=== PATIENT | female | born 1955 | race Asian ===

== ENCOUNTER 2022-07-06 22:40 | Inpatient (IN) | payer BC, SELFPAY ==
--- NOTE | ~2022-07-06 | NM_ITS ---
Nuclear Medicine Procedure: Perfusion/Ventilation Lung Scan History: Pulmonary embolus, Elevated d-dimer Interpretation: Ventilation portion of the exam was not performed due to covid 19 precautions. 5.1 mCi. of Technetium-labeled microspheres were injected intravenously and multiple images obtained in 8 projections revealed normal perfusion to the lungs without any segmental or subsegmental defects . Impression: Normal perfusion lung scan. ............................................................... The following are reference parameters for VQ scan interpretation: 1. Normal or Near-Normal Lung Scan: This excludes clinically significant pulmonary embolism. Angiography is not necessary. 2. High Probability for Pulmonary Embolism: There is over 90% probability for acute pulmonary embolism. Angiography is not necessary for confirmation. 3. A. Intermediate (low end): Whereas unlikely to be PE based on V/Q scan alone, there is a 10-25% probability for pulmonary embolism (PE) based upon the level of clinical suspicion. B. Intermediate (high end): Depending upon the level of clinical suspicion, there is a 30-60% probability for pulmonary embolism. Reviewed, dictated and finalized at location [] ENGRAVER Impression: Normal perfusion lung scan. ............................................................... The following are reference parameters for VQ scan interpretation: 1. Normal or Near-Normal Lung Scan: This excludes clinically significant pulmonary embolism. Angiography is not necessary. 2. High Probability for Pulmonary Embolism: There is over 90% probability for acute pulmonary embolism. Angiography is not necessary for confirmation. 3. A. Intermediate (low end): Whereas unlikely to be PE based on V/Q scan alone, there is a 10-25% probability for pulmonary embolism (PE) based upon the level of clinical suspicion. B. Intermediate (high end): Depending upon the level of clinical suspicion, there is a 30-60% probability for pulmonary embolism.
--- NOTE | ~2022-07-06 | US_ITS ---
Duplex Sonography of the bilateral lower extremities: Indication: Low extremity swelling Sagittal and transverse B-mode images as well as color-flow imaging were performed on the right and l eft femoral and popliteal veins. B-mode examination was done without and with compression in the tra nsverse plane. There is good visualization of the bilateral common femoral, proximal profunda femora l, superficial femoral, greater saphenous, and popliteal veins. Normal flow was seen on color-flow im aging. Normal compressibility was demonstrated. Bilateral calf veins are also patent. Impression: No evidence for lower extremity DVT. Reviewed, dictated and finalized at location [] CTOR AIRPORT Impression: No evidence for lower extremity DVT.
--- NOTE | ~2022-07-06 | NM_ITS ---
EXAMINATION: NM mauri stress w perfusion DATE: 07/09/2022 13:31 INDICATION: Ischemic evaluation for reduced left ventricular ejection fraction TECHNIQUE: Rest images were obtained following intravenous administration of 8.5 mCi Tc99m tetrofosmi n (Myoview). The patient was infused intravenously with Lexiscan (Regadenoson). Then, 87.5 mCi Tc99m tetrofosmin (Myoview) was administered intravenously, and stress images were obtained. Data was recon structed into short axis and horizontal and vertical long axis SPECT images. Gated SPECT images were also obtained. COMPARISON: None. FINDINGS: Large fixed mild to moderate severity perfusion defect consistent with infarct involving th e mid anteroseptal, apical, mid and basilar anterior segments and the mid and basilar anterolateral s egments. Additional small mild to moderate severity fixed perfusion defect at the mid inferior segmen t. No reversible perfusion defects to suggest ischemia. There is normal left ventricular chamber size with diffuse hypokinesis resulting in moderately decreased left ventricular ejection fraction measur ing 23%. IMPRESSION: 1. Large mild to moderate severity nonreversible infarct involving the mid anteroseptal, the apical, mid and basilar anterior segments in the mid and basilar anterolateral segments. 2. Small mild/moderate severity nonreversible infarct involving the mid inferior segment. 2. Moderately decreased left ventricular ejection fraction measuring 23%. Reviewed, dictated and finalized at location A. RMATICS PHYSICIAN LIAISON IMPRESSION: 1. Large mild to moderate severity nonreversible infarct involving the mid ante roseptal, the apical, mid and basilar anterior segments in the mid and basilar anterolateral segments. 2. Small mild/moderate severity nonreversible infarct involving the mid inferio r segment. 2. Moderately decreased left ventricular ejection fraction measuring 23%.
--- NOTE | ~2022-07-06 | XR_ITS ---
EXAMINATION: XR chest 1V portable DATE: 07/06/2022 23:38 INDICATION: Shortness of breath. TECHNIQUE: A single frontal view of the chest was obtained. COMPARISON: None. FINDINGS: There are small pleural effusions. There is a diffuse interstitial pattern in the lungs. Th ere are airspace opacities at the lung bases. No pneumothorax. Cardiomegaly is noted. IMPRESSION: 1. Diffuse lung disease, likely pulmonary edema and basilar atelectasis versus pneumonia. 2. Small pleural effusions. 3. Cardiomegaly. Reviewed, dictated and finalized at location A. ERIOLOGY TECHNICIAN
[2022-07-06 22:34] VITALS: BP 161/114; PULSE 139; RESP 23; O2SAT 100
[2022-07-06 22:45] VITALS: PULSE 148; RESP 38; O2SAT 100
--- NOTE | 2022-07-06 23:09 | PC.NURSE ---
Upon arrival to the ED patient was experiencing SOB. Patient was placed on 15L NRB due to oxygen sat being in the 70's on room air. Dr Church gave verbal order for 80mg of lasix, a call to respiratory for bipap and 2 nitro tablets to be given. Those medications were given at 2242 by nurse Fletcher. Patient condition did not improve and verbal order was given for 6mg adenosine by Dr Church. Medication administered by physician at 2255. Patient did not improve after administration so verbal order for 12mg was given. 12mg of adenosine was administered by Dr Church at 2258. Patient currently on bipap and tolerating the mask at this time. Family states patient has history of cancer and has been undergoing chemo.
--- NOTE | 2022-07-06 23:39 | ECG_ITS ---
Measurements Intervals [place] Rate: 150 P: 179 TX: 95 QRS: 81 QRSD: 132 T: 52 QT: 326 QTc: 515 Interpretive Statements SINUS TACHYCARDIA WITH SHORT TX INTERVAL, POSSIBLE ATRIAL FLUTTER INTRAVENTRICULAR CONDUCTION DELAY [130+ ms QRS DURATION] NO PREVIOUS ECG AVAILABLE FOR COMPARISON Electronically Signed On 07-07-2022 16:19:43 SPINNING LATHE OPERATOR by Afua Bustos M.D.
--- NOTE | 2022-07-06 23:54 | ED.GENADULT ---
HPI - General Adult General Chief complaint: Shortness of Breath/Dyspnea Stated complaint: CP/SOB Time Seen by Provider: 07/06/22 23:19 History of Present Illness HPI narrative: Patient is English speaking and her son translated as the translating service could not find us a clinical science consultant. This is a 66-year-old female presenting ED with chief complaint of shortness of breath. Patient was sitting watching TV when she became acutely short of breath. She denies chest pain, fever, chills, Nausea vomiting abdominal pain or diarrhea. No sick contacts at home. Patient has had this happen in the past in [place] where she is from. she has been diagnosed with fluid on her lungs. She also has had fluid drained from her lungs multiple times. Patient has a history of B-cell lymphoma successfully treated. Patient does note that she has had some swelling of her left leg. When EMS picked the patient up she was satting in the 70s on room air. She increased to 100% on 15 L non-rebreather. She was given 4 aspirin 1 nitro, 10 mgDecadron by EMS. Related Data Allergies Allergy/AdvReac Type Severity Reaction Status Date / Time No Known Allergies Allergy Verified 07/06/22 23:19 Review of Systems Review of Systems: CONSTITUTIONAL: Denies night sweats. EYES: No eye pain ENT: Denies rhinorrhea CARDIOVASCULAR: Denies palpitations RESPIRATORY: Denies hemoptysis GASTROINTESTINAL: Denies hematemesis GENITOURINARY: Denies hematuria. SKIN: Denies rash MUSCULOSKELETAL: Denies myalgia. NEUROLOGIC: Denies weakness. PSYCHIATRIC: Denies delusions [facility] Past Medical History Medical History B-cell lymphoblastic leukemia/lymphoma Pleural effusion Social History Social History Social History: Denies drugs alcohol or tobacco Exam Narrative: APPEARANCE: patient is in respiratory extremis, 1-2 word dyspnea Head: atraumatic. EYES: EOMI, NOSE: Atraumatic NECK: Trachea midline RESPIRATORY: tachypneic, tripoding, 1-2 word dyspnea, crackles in all alberto CARDIOVASCULAR: tachycardic, +1 edema of the left lower extremity greater than right ABDOMINAL: Non-distended nontender no guarding rebound MUSCULOSKELETAl: No obvious deformities NEURO: Alert. Moving 4/4 extremities SKIN:: Warm, dry. Normal color PSYCHIATRIC: Normal affect point of care cardiac ultrasound read showed a reduced EF, plus thorax IVC and B lines in all alberto indicating pulmonary edema and fluid back up. Course Vital Signs Vital signs: Vital Signs Pulse Rate 139 H 07/06/22 22:34 Respiratory Rate 23 H 07/06/22 22:34 Blood Pressure 161/114 H 07/06/22 22:34 Pulse Oximetry 100 07/06/22 22:34 Oxygen Delivery Non-Rebreather Mask 07/06/22 22:34 Oxygen Flow Rate 15 07/06/22 22:34 Pulse Rate 115 H 07/07/22 01:00 Respiratory Rate 17 07/07/22 01:00 Blood Pressure 104/80 07/07/22 01:00 Pulse Oximetry 100 07/07/22 01:00 Oxygen Delivery BiPAP 07/06/22 23:30 Oxygen Flow Rate 15 07/06/22 22:34 Fraction of Inspired Oxygen 50 07/06/22 23:30 Medical Decision Making [facility] Narrative Medical decision making narrative: This is a 66-year-old female presenting to the ED in respiratory distress. Differential includes pneumonia, CHF exacerbation, flash pulmonary edema, pulmonary embolism among others. Patient had crackles in all alberto. Her symptoms were consistent with flash pulmonary edema. Patient was placed on BiPAP at 15 in 5. She was given 2 tabs of sublingual nitro. given 80 mg of IV Lasix. Point of care cardiac ultrasound showed a reduced EF with plethoric IVC and diffuse pulmonary edema. Additionally she has 2 moderate-sized pleural effusions bilaterally. Patient's heart rate was 143. An EKG was obtained which was concerning for SVT versus profound tachycardia versus a flutter. Patient was given adenosine to slow th
[2022-07-07] VITALS (31 sets, daily range): BP systolic 92–123; BP diastolic 49–86; PULSE 71–132; RESP 12–26; TEMP 36.1–37.1; O2SAT 96–100; BMI 24.4
--- NOTE | 2022-07-07 | ECHO_ITS ---
Patient Info Name: Klarissa Currie Rai Age: 66 years : 1955 Gender: Female Ht: 68 in Wt: 98 lbs BSA: 1.44 m2 HR: 104 bpm BP: 110 / 73 mmHg Heart Rhythm: Sinus Rhythm, Tachycardia Exam Date: 07/07/2022 8:21 AM Exam Location: [facility] Patient Status: Inpatient Admit Date: 07/07/2022 Staff Ordering Physician: Charla Winn DO Prom Burn Off Operator: Nathen Gutierrez RDCS, RT Attending Provider: Charla Winn DO Referring Physician: Pa YOU; Exam Type: CA echo doppler color flow Study Info Indications J81.0 - Acute pulmonary edema Complete two-dimensional, color flow and Doppler transthoracic echocardiogram is performed. Strain analysis performed. Summary 1. Complete two-dimensional, color flow and Doppler transthoracic echocardiogram is performed. 2. Left ventricular systolic function is severely reduced, estimated at <15%. 3. Right ventricular systolic function is normal. 4. The mitral valve has thickened leaflets. 5. There is severe mitral valve regurgitation. 6. Left pleural effusion is present. 7. There is moderate anterior pericardial effusion with trivial posterior pericardial effusion. 8. There is early RV diastolic collapse concerning for echocardiographic tamponade. Respiratory variations in transvalvular flow velocities do not meet criteria for tamponade. Correlate to clinical findings of tamponade. Left Ventricle Left ventricular chamber dimension is normal. Left ventricular systolic function is severely reduced, estimated at <15%. There is no increased left ventricular wall thickness. Right Ventricle Right ventricular chamber dimension is normal. Right ventricular systolic function is normal. Left Atria Left atrial chamber dimension is normal. Right Atria Right atrial chamber dimension is normal. Atrial Septum Intact interatrial septum visualized by color flow imaging. Aortic Valve The aortic valve is trileaflet. There is no aortic valve stenosis. There is no aortic valve regurgitation. Pulmonic Valve The pulmonic valve is not well visualized. Mitral Valve The mitral valve has thickened leaflets. There is no mitral valve stenosis. There is severe mitral valve regurgitation. Tricuspid Valve There is trace tricuspid valve regurgitation. Pericardium/Pleural Left pleural effusion is present. There is early RV diastolic collapse concerning for echocardiographic tamponade. Respiratory variations in transvalvular flow velocities do not meet criteria for tamponade. Correlate to clinical findings of tamponade. There is moderate anterior pericardial effusion with trivial posterior pericardial effusion. Inferior Vena Cava Dilated inferior vena cava with >50% collapse upon inspiration consistent with elevated right atrial pressure. Aorta The aortic root size at the sinus of Valsalva is normal. Left Ventricular Outflow Tract Name Value Normal LVOT 2D LVOT Diameter 1.9 cm LVOT Doppler LVOT Peak Gradient 1 mmHg LVOT Mean Gradient 1 mmHg LVOT VTI 8 cm LVOT VTI
[2022-07-07 00:40] LABS: INR 1.1; Lactic Acid Reflex 1.9 mmol/L (0.7-2.0); Prothrombin Time 13.6 Seconds (11.1-14.7)
[2022-07-07 00:49] LABS: NT Pro B Type Natriuretic Pept 10400 pg/mL (5-100)
[2022-07-07 00:52] LABS: D Dimer 2.12 ug/mL (<0.48)
[2022-07-07 00:57] LABS: Basophils Percent Auto 0.3 % (0.2-1.2); Eosinophils Percent Auto 0.2 % (0-4.4); Hematocrit 34.7 % (37.0-47.0); Hemoglobin 11.3 g/dL (12.0-15.0); Immature Granulocyte Absolute 0.11 K/mm3 (0.00-0.031); Immature Granulocyte Percent A 1.1 % (0-0.5); Lymphocytes Absolute Auto 0.51 K/mm3 (0.9-3.2); Mean Corpuscular HGB Conc 32.6 g/dl (32-36); Mean Corpuscular Hemoglobin 26.2 pg (26-34); Mean Corpuscular Volume 80.3 fl (80-100); Mean Platelet Volume 12.4 fl (7.4-10.4); Monocytes Absolute Auto 0.3 K/mm3 (0.1-0.6); Monocytes Percent Auto 2.6 % (2.6-8.5); Neutrophils Absolute Auto 9.2 K/mm3 (1.3-6.7); Neutrophils Percent Auto 90.8 % (45.5-73.1); Platelet Count Result 176 k/mm3 (150-375); Red Blood Count 4.32 M/mm3 (4.2-5.4); Red Cell Distribution Width 16.4 % (11.5-14.5); White Blood Count 10.2 K/mm3 (4.5-10.0)
[2022-07-07 01:00] LABS: Alanine Aminotransferase 56 U/L (6-35); Albumin Level 4.4 g/dL (3.5-5.1); Alkaline Phosphatase 128 U/L (38-126); Anion Gap 7 mmol/L (8-16); Aspartate Amino Transferase 140 U/L (14-36); Bilirubin,Total 0.5 mg/dL (0.2-1.3); Blood Urea Nitrogen 12 mg/dL (7-17); Calcium 8.4 mg/dL (8.4-10.2); Carbon Dioxide 26 mmol/L (22-30); Chloride 101 mmol/L (98-107); Estimated Glomerular Filt Rate > 60; Glucose 147 mg/dL (65-110); Potassium 4.2 mmol/L (3.4-5.0); Sodium 134 mmol/L (137-145); Troponin I 0.083 ng/mL (0.000-0.034)
[2022-07-07 01:08] LABS: Influenza A QL RT-PCR Negative (Negative); Influenza B QL RT-PCR Negative (Negative); SARS-CoV-2 RNA PCR Negative
--- NOTE | 2022-07-07 01:46 | ECG_ITS ---
Measurements Intervals [place] Rate: 109 P: 26 WV: 138 QRS: -10 QRSD: 134 T: 148 QT: 403 QTc: 543 Interpretive Statements SINUS TACHYCARDIA POSSIBLE LEFT ATRIAL ENLARGEMENT [-0.1mV P WAVE IN V1/V2] INCOMPLETE LEFT BUNDLE BRANCH BLOCK COMPARED TO ECG 07/06/2022 22:48:00 HEART RATE HAS DECREASED Electronically Signed On 07-07-2022 16:24:53 BRAKE SPECIALIST by Afua Bustos M.D.
[2022-07-07 04:13] LABS: Troponin I 0.117 ng/mL (0.000-0.034)
--- NOTE | 2022-07-07 04:45 | ADMGEN ---
This patient, Klarissa Currie Rai, was admitted to IMU Room 204-01. Patient/family oriented to hospital policies and general routines including ID bracelet, bed and alarms, visiting hours, pain management, procedures, bathroom and other care routines, personal items, smoking policy, room service/diet, and visiting hours. Information on how to activate the Rapid Response Team has been discussed. Patient/Family are encouraged to report perceived risks to care and to ask questions if they do not understand what they are told or what they should do.
--- NOTE | 2022-07-07 06:09 | PM.IMHP ---
H&P: HPI History of Present Illness Date/Time: 07/07/22 06:09 Chief Complaint: Shortness of breath Narrative: 66-year-old female from [facility] with Trinidadian as a 2nd language who presented to the ER via EMS from her son's home due to shortness of breath. The patient is from [place] and has been in town since the . She states that she has a history of B-cell lymphoma and completed chemotherapy March 2022. See reported that during her course of her chemotherapy treatment she did develop ?fluid on the lungs?. She denies any known history of heart failure or cardiac rhythm issues. She has noticed increased progressive shortness of breath for the last couple of weeks. Her symptoms acutely worsened on the evening of presentation and she felt like she was going to so she had her son call EMS. On EMS arrival to the patient's home she was satting 70% on room air. She was placed on a non-rebreather a given 4 aspirin and 1 sublingual nitro as well as Decadron. She denies any significant lower extremity swelling. However in the ER she was noted to have 1+ pitting edema left greater than right. She denies any calf pain. She denies any chest pain. In the ER she had a point of care ultrasound which demonstrated a reduced ejection fraction and changes in the IVC suggestive of fluid overload as well as B lines. These findings were consistent with pulmonary edema and fluid overload. Ill the son also demonstrated pleural effusions. Her heart rate was in the 140s at the patient received adenosine to determine underlying rhythm which was profound tachycardia. There was no evidence of AFib or flutter on the EKGs. She received 2 doses of IV Lasix 40 mg in the ER as well as 1 in of nitropaste and patient was placed on BiPAP. After treatment with nitro paste and Lasix patient's respiratory status improved where she was down to 4 L nasal cannula. She denies any nausea or vomiting. She has had resolution of her tachycardia. She reports states that she feels much more like herself. She has had increased urinary frequency with Lasix. She states that she cannot have IV contrast. She had a CT with IV contrast several years ago and developed what sounds like angioedema. She then was premedicated a few years later for a repeat CT with contrast and had angioedema again. Although the ER staff reported the patient did not speaking list patient actually spoken adequate amount of Trinidadian and was able to provide me with a fair medical history given the circumstances. Review of Systems Review of Systems: 12 systems were reviewed with pertinent positives and negatives per HPI. Except as documented in the HPI, all other systems were reviewed and are negative. [facility] Past Medical History Medical History (Updated 07/07/22 @ 09:07 by Charla Winn DO) B-cell lymphoblastic leukemia/lymphoma Pleural effusion Surgical History Surgical History (Updated 07/07/22 @ 09:00 by Charla Winn DO) No significant past surgical history Family History Family History Other Unknown family medical history Social History Social History (Updated 07/07/22 @ 09:03 by Charla Winn DO) Social History: The patient is from [place] in his in the area visiting her son. She plays through returned to do work the lytic couple of days. She is a lifelong nonsmoker and does not drink alcohol. She raised 3 children. Her daughter committed suicide. Her other 2 children are in good health. Code status: Full code Smoking status: Never smoker Alcohol intake: never Substance use: never Lack of Transportation: No Lack of Food: Never True Current Housing: I Have Housing Concerned About Future Housing: Decline to Answer Difficulty Paying Gas/Electric Bills: Decline to Answer Difficulty Paying for Meds: Decline to Answer Currently Unemployed: Decline to Answer Education: Decline to Answer
[2022-07-07 09:22] LABS: Hepatitis B Surface Antigen Negative (Negative)
[2022-07-07 09:28] LABS: HAV RESULT Negative (Negative); Hepatitis B Core IgM Result Negative (Negative)
[2022-07-07 09:28] LABS: Anion Gap 7 mmol/L (8-16); Blood Urea Nitrogen 11 mg/dL (7-17); Calcium 8.4 mg/dL (8.4-10.2); Carbon Dioxide 25 mmol/L (22-30); Chloride 108 mmol/L (98-107); Estimated Glomerular Filt Rate > 60; Glucose 115 mg/dL (65-110); Potassium 3.5 mmol/L (3.4-5.0); Sodium 140 mmol/L (137-145)
[2022-07-07 09:40] LABS: Hepatitis C Virus Antibody Negative (Negative)
[2022-07-07 09:46] LABS: Troponin I 0.062 ng/mL (0.000-0.034)
[2022-07-07] MEDS: ENOXAPARIN 60 MG/0.6 ML SYRINGE 55 MG SUB-Q ×2 (11:16→20:23)
--- NOTE | 2022-07-07 15:28 | PM.CNCAR ---
Assessment and Plan Assessment and plan (1) Acute respiratory failure with hypoxia: Code(s): J96.01 - Acute respiratory failure with hypoxia Status: Acute (2) Flash pulmonary edema: Code(s): J81.0 - Acute pulmonary edema Status: Acute (3) Acute systolic heart failure: Code(s): I50.21 - Acute systolic (congestive) heart failure Status: Acute (4) Pericardial effusion: Code(s): I31.39 - Other pericardial effusion (noninflammatory) Status: Acute (5) Mitral regurgitation: Code(s): I34.0 - Nonrheumatic mitral (valve) insufficiency Status: Acute Plan TTE done today which shows severely reduced LVEF <15%, severe MR, moderate anterior pericardial effusion with early RV diastolic collapse concerning for echocardiographic tamponade, however, the respiratory variation in transvalvular in-flow velocities do not meet tamponade criteria. She also has left pleural effusion seen on echo. At this time, patient does not have any clinical evidence of clinical tamponade. Pericardiocentesis is not indicated at this time. Patient has new diagnosis of systolic heart failure. She will need an ischemic evaluation at some point. However, unfortunately she has not tolerated contrast in the past and has developed angioedema even with contrast allergy premedication. Patient has already received 80mg of IV Lasix today. In the setting of her pericardial effusion, would avoid aggressive diuresis and overdiuresing. Monitor strict I/Os. She will need GDMT started for her reduced LVEF. Will start beta-renny once patient is euvolemic. Avoid Entresto for now to avoid causing hypotension in the setting of her pericardial effusion - may start Losartan tomorrow morning if her blood pressure remains stable. History of Present Illness History of Present Illness Consult date/time: 07/07/22 15:28 Requesting physician: Rachael Morales MD Consult reason: congestive heart failure Reason For Visit: CHF Narrative: Patient is a 66-year-old female with a history of B-cell lymphoma s/p 6 cycles of chemotherapy that was completed in March 2022 who presented to [place] ER for worsening shortness of breath. Patient states that she lives in [place] and was visiting her son here since last Wednesday and was actually planning to go back to [place] yesterday. Patient states she has been having shortness of breath for last few weeks, but progressively worsened past few days. Patient was found to be hypoxic in the 70s when EMS arrived to home. She was placed on nonrebreather. Found to be in flash pulmonary edema in the ED, and was given 80mg of IV Lasix with improvement. She was also given Adenosine in the ER for tachycardia in the 140s, but was sinus tachycardia with no evidence of atrial flutter or other abnormal rhythm. She was weaned off oxygen. Patient had an elevated D-dimer, but cannot get CT with IV contrast due to past angioedema with contrast. She underwent V/Q scan which was normal. Troponins mildly elevated. NT pro BNP 10,400. Patient states that she has had issues with fluid in her lungs before, but denies any issues with her heart in the past. She states that she initially got a CT scan with contrast few years ago and had a severe allergy to it, and then later on did get contrast allergy premedication for another CT scan, however, she developed the same allergic symptoms despite getting premedication. TTE done today which shows severely reduced LVEF <15%, severe MR, moderate anterior pericardial effusion with early RV diastolic collapse concerning for echocardiographic tamponade, however, the respiratory variation in transvalvular in-flow velocities do not meet tamponade criteria. She also has left pleural effusion seen on echo. Given this, Cardiology consulted. Patient denies any episodes of chest pain. She says she does not feel short of breath anymore. No swelling in legs. Patient is currently on room air. Revi
--- NOTE | 2022-07-07 17:32 | PM.IMPN ---
Progress Note: A&P Assessment and Plan (1) Acute respiratory failure with hypoxia: Code(s): J96.01 - Acute respiratory failure with hypoxia Status: Acute (2) Congestive heart failure: Qualifiers: Heart failure chronicity: acute Heart failure type: unspecified Qualified Code(s): I50.9 - Heart failure, unspecified Code(s): I50.9 - Heart failure, unspecified Status: Acute (3) Flash pulmonary edema: Code(s): J81.0 - Acute pulmonary edema Status: Acute (4) Elevated d-dimer: Code(s): R79.89 - Other specified abnormal findings of blood chemistry Status: Acute (5) Transaminitis: Code(s): R74.01 - Elevation of levels of liver transaminase levels Status: Acute Plan The patient had acute hypoxic respiratory failure the most consistent with pulmonary edema whether acute or acute on chronic is not completely known as the patient has been having symptoms for 2 or 3 weeks. She likely has some underlying congestive heart failure possibly due to her recent history of lymphoma treatment. Will obtain echocardiogram. Patient's oxygen has been weaned down to 3 L nasal cannula. Will continue wean as tolerated to maintain oxygen saturations greater than 92% will obtain echocardiogram to further delineate patient's cardiac structure and function. Given the patient's recent travel in ER reported patient had asymmetric lower extremity swelling specially in the setting with patient having an elevated D-dimer we need to rule out pulmonary embolism. Patient has had prior episodes of marked into edema with IV contrast administration even when she had premedication for IV contrast. Thus a V/Q scan will be ordered to rule out pulmonary embolism. Will also check bilateral lower extremity Dopplers to rule out DVT. Will provide therapeutic Lovenox until tests are completed. The patient does have some transaminitis which I suspect is due to passive congestion of the liver. However, will check acute hepatitis panel. Patient does have elevated troponins but this likely due to profound hypoxia in the setting of pulmonary edema causing acute cardiac strain. Will check repeat troponin until trending down. Patient has been admitted as inpatient status and will require greater than 2 midnight stay for evaluation and stabilization of acute severe illness. 07/07/2022 interval history: patient with history of B-cell lymphoma going through the chemotherapy visiting family here from [place] and presented, with shortness of breath concerning for congestive heart failure and pulmonary emboli as patients D-dimer is elevated, patient's lower extremity Dopplers negative for DVT and her V/Q scan is negative for pulmonary emboli however her cardiac echo is concerning for severe cardiomyopathy with ejection fraction 15%, severe mitral valve regurgitation, and moderate anterior pericardial effusion with early right ventricular collapse concerning for he echo cardiographic tamponade, we have a consult outreach and education social worker for further recommendation will continue to monitor Subjective Date/time seen: 07/07/22 17:32 Shortness of breath HPI-Narrative: 66-year-old female from [facility] with [place] as a 2nd language who presented to the ER via EMS from her son's home due to shortness of breath.? The patient is from [place] and has been in town since the .? She states that she has a history of B-cell lymphoma and completed chemotherapy March 2022.? See reported that during her course of her chemotherapy treatment she did develop ?fluid on the lungs?.? She denies any known history of heart failure or cardiac rhythm issues.? She has noticed increased progressive shortness of breath for the last couple of weeks.? Her symptoms acutely worsened on the evening of presentation and she felt like she was going to so she had her son call EMS.? On EMS arrival to the patient's home she was satting 70% on room air.? She was placed
[2022-07-08] VITALS (13 sets, daily range): BP systolic 89–108; BP diastolic 60–75; PULSE 74–117; RESP 12–18; TEMP 36.3–37; O2SAT 97–100
[2022-07-08 04:33] LABS: Hematocrit 30.8 % (37.0-47.0); Hemoglobin 9.7 g/dL (12.0-15.0); Mean Corpuscular HGB Conc 31.5 g/dl (32-36); Mean Corpuscular Hemoglobin 24.6 pg (26-34); Mean Platelet Volume 12.5 fl (7.4-10.4); Platelet Count Result 166 k/mm3 (150-375); Red Blood Count 3.95 M/mm3 (4.2-5.4); Red Cell Distribution Width 16.6 % (11.5-14.5); White Blood Count 6.3 K/mm3 (4.5-10.0)
[2022-07-08 04:52] LABS: Alanine Aminotransferase 34 U/L (6-35); Albumin Level 3.4 g/dL (3.5-5.1); Alkaline Phosphatase 107 U/L (38-126); Anion Gap 2 mmol/L (8-16); Aspartate Amino Transferase 44 U/L (14-36); Bilirubin,Total 0.4 mg/dL (0.2-1.3); Blood Urea Nitrogen 11 mg/dL (7-17); Calcium 7.8 mg/dL (8.4-10.2); Carbon Dioxide 28 mmol/L (22-30); Chloride 105 mmol/L (98-107); Estimated Glomerular Filt Rate > 60; Glucose 99 mg/dL (65-110); Magnesium 2.2 mg/dL (1.6-2.3); Potassium 3.2 mmol/L (3.4-5.0); Sodium 135 mmol/L (137-145)
[2022-07-08] MEDS: ENOXAPARIN 60 MG/0.6 ML SYRINGE 55 MG SUB-Q (08:11)
--- NOTE | 2022-07-08 11:22 | PM.PNCARD ---
Progress Note: A&P Assessment and Plan (1) Acute systolic heart failure: Code(s): I50.21 - Acute systolic (congestive) heart failure Status: Acute (2) Pericardial effusion: Code(s): I31.39 - Other pericardial effusion (noninflammatory) Status: Acute (3) Mitral regurgitation: Code(s): I34.0 - Nonrheumatic mitral (valve) insufficiency Status: Acute (4) Acute respiratory failure with hypoxia: Code(s): J96.01 - Acute respiratory failure with hypoxia Status: Acute (5) Flash pulmonary edema: Code(s): J81.0 - Acute pulmonary edema Status: Acute Plan TTE done 07/07 which shows severely reduced LVEF <15%, severe MR, moderate anterior pericardial effusion with early RV diastolic collapse concerning for echocardiographic tamponade, however, the respiratory variation in transvalvular in-flow velocities do not meet tamponade criteria. She also has left pleural effusion seen on echo. At this time, patient does not have any clinical evidence of clinical tamponade. Pericardiocentesis is not indicated at this time. Patient has new diagnosis of systolic heart failure. She will need an ischemic evaluation. Ideally, this would be done with a cardiac cath. However, unfortunately she has not tolerated contrast in the past and has developed angioedema even with contrast allergy premedication. Therefore, unable to obtain coronary CTA as well. Will obtain Lexiscan tomorrow. Patient is now on room air without any orthopnea and appears euvolemic. Would give Lasix PRN. For her heart failure GDMT, will start Losartan, Toprol, and Jardiance. Will start low doses of Losartan and Toprol to avoid hypotension. For her pericardial effusion, recommend repeat TTE in a month. She will need close outpatient Cardiology follow-up. Patient was supposed to return to [place], and patient states she will find a business analyst manager there. If patient happens to stay here, we are more than happy to see her in our clinic. Subjective Date/time seen: 07/08/22 11:22 Interval history: Reason for visit: Acute systolic heart failure, pericardial effusion HPI: Patient is a 66-year-old female with a history of B-cell lymphoma s/p 6 cycles of chemotherapy that was completed in March 2022 who presented to [facility] for worsening shortness of breath. Patient states that she lives in [place] and was visiting her son here since last Wednesday and was actually planning to go back to [place] yesterday. Patient states she has been having shortness of breath for last few weeks, but progressively worsened past few days. Patient was found to be hypoxic in the 70s when EMS arrived to home. She was placed on nonrebreather. Found to be in flash pulmonary edema in the ED, and was given 80mg of IV Lasix with improvement. She was also given Adenosine in the ER for tachycardia in the 140s, but was sinus tachycardia with no evidence of atrial flutter or other abnormal rhythm. She was weaned off oxygen. Patient had an elevated D-dimer, but cannot get CT with IV contrast due to past angioedema with contrast. She underwent V/Q scan which was normal. Troponins mildly elevated. NT pro BNP 10,400. Patient states that she has had issues with fluid in her lungs before, but denies any issues with her heart in the past. She states that she initially got a CT scan with contrast few years ago and had a severe allergy to it, and then later on did get contrast allergy premedication for another CT scan, however, she developed the same allergic symptoms despite getting premedication. TTE done today which shows severely reduced LVEF <15%, severe MR, moderate anterior pericardial effusion with early RV diastolic collapse concerning for echocardiographic tamponade, however, the respiratory variation in transvalvular in-flow velocities do not meet tamponade criteria. She also has left pleural effusion seen on echo. Given this, Cardiology consulted. Patient denies any episodes of c
[2022-07-08 12:22] LABS: Glucose Point of Care 118 mg/dl (65-105)
[2022-07-08] MEDS: METOPROLOL SUCCINATE EXT REL 25 MG TABCR PO (13:06)
[2022-07-08] MEDS: LOSARTAN POTASSIUM 25 MG TABLET PO (13:07)
[2022-07-08] MEDS: EMPAGLIFLOZIN 10 MG TABLET PO (13:07)
[2022-07-08] MEDS: POTASSIUM CHLORIDE 20 MEQ TABLET 40 MEQ PO (15:30)
[2022-07-09] VITALS (13 sets, daily range): BP systolic 105–118; BP diastolic 67–80; PULSE 88–130; RESP 12–16; TEMP 36–36.8; O2SAT 98–100
[2022-07-09 05:15] LABS: Hematocrit 32.9 % (37.0-47.0); Hemoglobin 10.1 g/dL (12.0-15.0); Mean Corpuscular HGB Conc 30.7 g/dl (32-36); Mean Corpuscular Hemoglobin 24.5 pg (26-34); Mean Corpuscular Volume 79.7 fl (80-100); Mean Platelet Volume 12.6 fl (7.4-10.4); Platelet Count Result 178 k/mm3 (150-375); Red Blood Count 4.13 M/mm3 (4.2-5.4); Red Cell Distribution Width 16.6 % (11.5-14.5); White Blood Count 5.4 K/mm3 (4.5-10.0)
[2022-07-09 05:35] LABS: Alanine Aminotransferase 50 U/L (6-35); Albumin Level 3.5 g/dL (3.5-5.1); Alkaline Phosphatase 109 U/L (38-126); Anion Gap 4 mmol/L (8-16); Aspartate Amino Transferase 79 U/L (14-36); Bilirubin,Total 0.4 mg/dL (0.2-1.3); Blood Urea Nitrogen 12 mg/dL (7-17); Calcium 8.2 mg/dL (8.4-10.2); Carbon Dioxide 26 mmol/L (22-30); Chloride 109 mmol/L (98-107); Estimated Glomerular Filt Rate > 60; Glucose 94 mg/dL (65-110); Magnesium 2.4 mg/dL (1.6-2.3); Potassium 4.2 mmol/L (3.4-5.0); Sodium 139 mmol/L (137-145)
--- NOTE | 2022-07-09 08:00 | EST_ITS ---
Patient Info Name: Maribel Cyr Rai Age: 66 years : 1955 Gender: Female Ht: 58 in Wt: 108 lbs BSA: 1.42 m2 HR: 99 bpm BP: 124 / 85 mmHg Heart Rhythm: Sinus Rhythm Exam Date: 07/09/2022 12:04 PM Exam Location: [facility] Stress Patient Status: Inpatient Admit Date: 07/07/2022 Staff Ordering Physician: Afua Bustos MD Attending Provider: Crow West MD Exercise Technologist: Nataliia Stovall, CT Nurse: maddison meza Exam Type: CA stress mauri w NM Study Info Indications I25.10 - Atherosclerotic heart disease of [place] coronary artery without angina pectoris A regadenoson stress test was performed. Summary 1. Non-diagnostic ECG due to left bundle branch block. 2. Please correlate with nuclear medicine images, reported separately. Protocol: Lexiscan Stress ECG Details Stage: REST Duration (min): 0 min : 50 sec HR (bpm): 101 SBP (mmHg): 124 DBP (mmHg): 85 Stage: REST Duration (min): 8 min : 12 sec HR (bpm): 105 SBP (mmHg): 124 DBP (mmHg): 85 Stage: STAGE 1 Duration (min): 0 min : 59 sec HR (bpm): 112 SBP (mmHg): 127 DBP (mmHg): 95 Stage: RECOVERY Duration (min): 1 min : 0 sec HR (bpm): 121 SBP (mmHg): 127 DBP (mmHg): 95 Stage: RECOVERY Duration (min): 2 min : 0 sec HR (bpm): 123 SBP (mmHg): 127 DBP (mmHg): 95 Stage: RECOVERY Duration (min): 3 min : 0 sec HR (bpm): 122 SBP (mmHg): 138 DBP (mmHg): 95 Stage: RECOVERY Duration (min): 4 min : 0 sec HR (bpm): 119 SBP (mmHg): 138 DBP (mmHg): 95 Stage: RECOVERY Duration (min): 5 min : 0 sec HR (bpm): 119 SBP (mmHg): 140 DBP (mmHg): 92 Stage: RECOVERY Duration (min): 6 min : 0 sec HR (bpm): 116 SBP (mmHg): 140 DBP (mmHg): 92 Stage: RECOVERY Duration (min): 6 min : 42 sec HR (bpm): 115 SBP (mmHg): 137 DBP (mmHg): 91 Rest HR: 105 bpm Peak HR: 123 bpm Rest Sys BP: 124 mmHg Peak Sys BP: 140 mmHg Max Pred HR: 155 bpm % Max Pred HR: 79 % Target HR: 132 bpm Max RPP: 17,220 bpm*mmHg Total Time: 1 min : 0 sec Rest Robert BP: 85 mmHg Peak Robert BP: 92 mmHg Total Dose: 0.4 mg Resting ECG Sinus rhythm. Left bundle branch block. Stress ECG Sinus tachycardia. Non-diagnostic ECG due to left bundle branch block. Arrhythmias None. Report Signatures
[2022-07-09] MEDS: LOSARTAN POTASSIUM 25 MG TABLET PO (09:31)
[2022-07-09] MEDS: METOPROLOL SUCCINATE EXT REL 25 MG TABCR PO (09:31)
[2022-07-09] MEDS: EMPAGLIFLOZIN 10 MG TABLET PO (09:31)
[2022-07-09] MEDS: ENOXAPARIN 40 MG/0.4 ML SYRINGE SUB-Q (09:32)
--- NOTE | 2022-07-09 11:03 | PC.NURSE ---
Patient transported to Imaging for Sonia stress test at 1103 by transportation department supervisor.
--- NOTE | 2022-07-09 13:36 | PM.PNCARD ---
Progress Note: A&P Assessment and Plan (1) Acute systolic heart failure: Code(s): I50.21 - Acute systolic (congestive) heart failure Status: Acute (2) Pericardial effusion: Code(s): I31.39 - Other pericardial effusion (noninflammatory) Status: Acute (3) Mitral regurgitation: Code(s): I34.0 - Nonrheumatic mitral (valve) insufficiency Status: Acute (4) Acute respiratory failure with hypoxia: Code(s): J96.01 - Acute respiratory failure with hypoxia Status: Acute (5) Flash pulmonary edema: Code(s): J81.0 - Acute pulmonary edema Status: Acute Plan TTE done 07/07 which shows severely reduced LVEF <15%, severe MR, moderate anterior pericardial effusion with early RV diastolic collapse concerning for echocardiographic tamponade, however, the respiratory variation in transvalvular in-flow velocities do not meet tamponade criteria. She also has left pleural effusion seen on echo. At this time, patient does not have any clinical evidence of clinical tamponade. Pericardiocentesis is not indicated at this time. Patient has new diagnosis of systolic heart failure. Ischemic evaluation done in the form of a lexiscan stress test since she has contrast dye allergy. MPI revealed a large mild to moderate severity nonreversible infarct involving the mid anteroseptal, apical, mid and basilar anterior segments in the mid and basilar anterolateral segments, and a small mild to moderate severity nonreversible infarct involving the mid inferior segment. We will medically manage this with aspirin, statin since she has contrast dye allergy even with premedication. If she would like to pursue invasive evaluation, she can discuss this with her event set up specialist in [place]. Not currently in decompensated heart failure. For her heart failure GDMT, started on losartan, Toprol, and Jardiance. Blood pressure is tolerating these medications well. For her pericardial effusion, recommend repeat TTE in a month. She will need close outpatient Cardiology follow-up. Patient was supposed to return to [place], and patient states she will find a event set up specialist there. If patient happens to stay here, we are more than happy to see her in our clinic. Subjective Date/time seen: 07/09/22 13:36 Cardiology follow up for cardiomyopathy Interval history: Feeling well today. She denies any shortness of breath or chest pain. No swelling. Exam Const: General: comfortable and no acute distress HENMT: Mouth: Yes moist mucous membranes Eyes: General: appearance normal, both eyes and all related structures Sclera: sclerae normal Neck: Neck: supple Resp: Effort & Inspection: normal respiratory effort Auscultation: crackles Cardio: Rate: regular rate Rhythm: regular rhythm Heart sounds: Murmur heart sound present systolic Skin: General skin exam: normal color Neuro: Speech: normal speech Motor exam (neuro): 5/5 motor strength present throughout Extrem: General: normal to inspection and no edema Psych: Mental Status: mental status grossly normal Affect: normal affect Objective Data Vital Signs Vital Signs: Vital Signs - 24 hr 07/08/22 14:00 07/08/22 16:00 07/08/22 16:00 Temperature Pulse Rate 113 H 105 H Respiratory Rate Blood Pressure Pulse Oximetry Oxygen Delivery Room Air 07/08/22 16:00 07/08/22 18:00 07/08/22 20:00 Temperature 36.7 C 36.3 C L Pulse Rate 104 H 101 H 98 Respiratory Rate 12 18 Blood Pressure 103/75 89/60 L Pulse Oximetry 97 100 Oxygen Delivery 07/09/22 00:00 07/08/22 20:00 07/09/22 00:00 Temperature 36.4 C Pulse Rate 99 Respiratory Rate 16 Blood Pressure 105/67 Pulse Oximetry 100 Oxygen Delivery Room Air Room Air 07/09/22 04:00 07/08/22 20:00 07/08/22 22:00 Temperature 36.0 C L Pulse Rate 97 103 H 99 Respiratory Rate 16 Blood Pressure 109/76 Pulse Oximetry 98 Oxygen Delivery 07/09/22 00:00 07/09/22
[2022-07-10] VITALS (16 sets, daily range): BP systolic 111–123; BP diastolic 72–88; PULSE 89–115; RESP 15–20; TEMP 36.4–36.9; O2SAT 98–100
[2022-07-10 05:03] LABS: Hematocrit 33.9 % (37.0-47.0); Hemoglobin 10.5 g/dL (12.0-15.0); Mean Corpuscular Hemoglobin 25.2 pg (26-34); Mean Corpuscular Volume 81.3 fl (80-100); Mean Platelet Volume 11.8 fl (7.4-10.4); Platelet Count Result 161 k/mm3 (150-375); Red Blood Count 4.17 M/mm3 (4.2-5.4); Red Cell Distribution Width 16.7 % (11.5-14.5); White Blood Count 5.2 K/mm3 (4.5-10.0)
[2022-07-10 05:19] LABS: Alanine Aminotransferase 39 U/L (6-35); Albumin Level 3.3 g/dL (3.5-5.1); Alkaline Phosphatase 99 U/L (38-126); Anion Gap 4 mmol/L (8-16); Aspartate Amino Transferase 48 U/L (14-36); Bilirubin,Total 0.5 mg/dL (0.2-1.3); Blood Urea Nitrogen 11 mg/dL (7-17); Calcium 8.1 mg/dL (8.4-10.2); Carbon Dioxide 24 mmol/L (22-30); Chloride 106 mmol/L (98-107); Estimated Glomerular Filt Rate > 60; Glucose 85 mg/dL (65-110); Magnesium 2.3 mg/dL (1.6-2.3); Potassium 3.6 mmol/L (3.4-5.0); Sodium 134 mmol/L (137-145)
[2022-07-10] MEDS: METOPROLOL SUCCINATE EXT REL 25 MG TABCR PO (09:22)
[2022-07-10] MEDS: LOSARTAN POTASSIUM 25 MG TABLET PO (09:22)
[2022-07-10] MEDS: ENOXAPARIN 40 MG/0.4 ML SYRINGE SUB-Q (09:23)
[2022-07-10] MEDS: ATORVASTATIN 40 MG TABLET PO (09:23)
[2022-07-10] MEDS: EMPAGLIFLOZIN 10 MG TABLET PO (09:23)
[2022-07-10] MEDS: ASPIRIN 81 MG ENTERIC TABLET PO (09:25)
--- NOTE | 2022-07-10 11:57 | PM.PNCARD ---
Progress Note: A&P Assessment and Plan (1) Acute systolic heart failure: Code(s): I50.21 - Acute systolic (congestive) heart failure Status: Acute (2) Pericardial effusion: Code(s): I31.39 - Other pericardial effusion (noninflammatory) Status: Acute (3) Mitral regurgitation: Code(s): I34.0 - Nonrheumatic mitral (valve) insufficiency Status: Acute (4) Acute respiratory failure with hypoxia: Code(s): J96.01 - Acute respiratory failure with hypoxia Status: Acute (5) Flash pulmonary edema: Code(s): J81.0 - Acute pulmonary edema Status: Acute Plan TTE done 07/07 which shows severely reduced LVEF <15%, severe MR, moderate anterior pericardial effusion with early RV diastolic collapse concerning for echocardiographic tamponade, however, the respiratory variation in transvalvular in-flow velocities do not meet tamponade criteria. She also has left pleural effusion seen on echo. At this time, patient does not have any clinical evidence of clinical tamponade. Pericardiocentesis is not indicated at this time. Patient has new diagnosis of systolic heart failure. Ischemic evaluation done in the form of a lexiscan stress test since she has contrast dye allergy. MPI revealed a large mild to moderate severity nonreversible infarct involving the mid anteroseptal, apical, mid and basilar anterior segments in the mid and basilar anterolateral segments, and a small mild to moderate severity nonreversible infarct involving the mid inferior segment. We will medically manage this with aspirin, statin since she has contrast dye allergy even with premedication. If she would like to pursue invasive evaluation, she can discuss this with her paperboard boxes estimator in [place]. Discussed this in detail with her son Not currently in decompensated heart failure. For her heart failure GDMT, started on losartan, Toprol, and Jardiance. Blood pressure is tolerating these medications well. Remains mildly tachycardic, will increase Toprol dose to 37.5mg daily. I discussed the concept of a LifeVest with her and her family and they would like to pursue this. Order placed. For her pericardial effusion, recommend repeat TTE in a month. She will need close outpatient Cardiology follow-up. Patient was supposed to return to [place], and patient states she will find a paperboard boxes estimator there. If patient happens to stay here, we are more than happy to see her in our clinic. Subjective Date/time seen: 07/10/22 11:57 Cardiology follow up for cardiomyopathy Feels well this morning. Breathing comfortably on room air. No chest pain, palpitations, swelling. Son and daughter at bedside. Exam Const: General: comfortable and no acute distress HENMT: Mouth: Yes moist mucous membranes Eyes: General: appearance normal, both eyes and all related structures Sclera: sclerae normal Neck: Neck: supple Resp: Effort & Inspection: normal respiratory effort Auscultation: crackles Cardio: Rate: regular rate Rhythm: regular rhythm Heart sounds: Murmur heart sound present systolic Skin: General skin exam: normal color Neuro: Speech: normal speech Motor exam (neuro): 5/5 motor strength present throughout Extrem: General: normal to inspection and no edema Psych: Mental Status: mental status grossly normal Affect: normal affect Objective Data Vital Signs Vital Signs: Vital Signs - 24 hr 07/09/22 12:00 07/09/22 14:00 07/09/22 16:00 Temperature 36.0 C L Pulse Rate 105 H 130 H 99 Respiratory Rate 16 Blood Pressure 118/80 Pulse Oximetry 99 Oxygen Delivery 07/09/22 12:00 07/09/22 16:00 07/09/22 16:00 Temperature Pulse Rate 103 H Respiratory Rate Blood Pressure Pulse Oximetry Oxygen Delivery Room Air Room Air 07/09/22 18:00 07/09/22 20:00 07/09/22 22:00 Temperature Pulse Rate 118 H 108 H 88 Respiratory Rate Blood Pressure Pulse Oximetry Oxygen Delivery
--- NOTE | 2022-07-10 13:33 | PM.IMPN ---
Progress Note: A&P Assessment and Plan (1) Acute respiratory failure with hypoxia: Code(s): J96.01 - Acute respiratory failure with hypoxia Status: Acute (2) Congestive heart failure: Qualifiers: Heart failure chronicity: acute Heart failure type: unspecified Qualified Code(s): I50.9 - Heart failure, unspecified Code(s): I50.9 - Heart failure, unspecified Status: Acute (3) Flash pulmonary edema: Code(s): J81.0 - Acute pulmonary edema Status: Acute (4) Elevated d-dimer: Code(s): R79.89 - Other specified abnormal findings of blood chemistry Status: Acute (5) Transaminitis: Code(s): R74.01 - Elevation of levels of liver transaminase levels Status: Acute Plan Acute hypoxic respiratory failure related to pulmonary edema.? V/Q scan with normal perfusion lung scan.? Improved with IV Lasix.? Venous duplex negative for DVT Echo with newly diagnosed systolic dysfunction with ejection fraction less than 15% likely related to acute on chronic congestive heart failure systolic.? Started on goal-directed therapy with losartan and metoprolol.? She did not require any further Lasix during the hospital stay.? Will place on Lasix oral p.r.n. at discharge Cardiomyopathy on losartan and metoprolol rule out ischemic cardiomyopathy.? Lexiscan revealed large [id number] severity non reversible infarct involving the mid anteroseptal, apical, mid and basilar anterior segments in the mid and basilar interictal segments and a small [id number] severity non reversible infarct involving the mid inferior segment.? After discussion with the patient plan for medical management with start of aspirin and statin particularly with a history of contrast dye allergy even with premedication.? She will need to follow-up with cardiology and establish with them when she gets back to [place]. LifeVest was discussed was ordered at the time of discharge. Discharge canceled due to not able to get LifeVest arranged Elevated troponin Sinus tachycardia possible atrial flutter received adenosine in the ER on presentation currently on beta-renny DVT prophylaxis Lovenox therapeutic Severe mitral regurgitation Left pleural effusion Pericardial effusion moderate anterior.? Repeat echo needed no signs of clinical tamponade in a month History of B-cell lymphoma completed chemotherapy DVT proph: lovneox Subjective Date/time seen: 07/10/22 13:33 Interval history: no overnight events. patient the same. Awaiting LifeVest placement Exam Narrative: Patient is comfortable, NAD HEENT: eyes are clear and none icteric LUNGS: normal respiratory effort ABD: not distended soft nontender Lower extremities: no edema cyanosis or clubbing SKIN: nonjaundiced Neuro: grossly intact. Objective Data Vital Signs Vital Signs: Vital Signs - 24 hr 07/11/22 14:00 07/11/22 16:00 07/11/22 16:00 Temperature Pulse Rate 99 108 H Respiratory Rate Blood Pressure Pulse Oximetry Oxygen Delivery Room Air 07/11/22 16:00 07/11/22 18:00 07/11/22 19:46 Temperature 98.1 F 97.8 F Pulse Rate 96 92 101 H Respiratory Rate 20 20 Blood Pressure 116/67 121/80 Pulse Oximetry 99 99 Oxygen Delivery 07/11/22 20:00 07/11/22 20:00 07/11/22 23:53 Temperature 98.6 F Pulse Rate 110 H 93 Respiratory Rate 20 Blood Pressure 116/74 Pulse Oximetry 100 Oxygen Delivery Room Air 07/12/22 00:00 07/12/22 04:19 07/12/22 04:00 Temperature 98.5 F Pulse Rate 96 96 96 Respiratory Rate 20 Blood Pressure 119/83 Pulse Oximetry Oxygen Delivery 07/12/22 08:00 07/12/22 09:30 07/12/22 09:30 Temperature 98.2 F Pulse Rate 101 H 105 H 105 H Respiratory Rate 16 Blood Pressure 118/68 Pulse Oximetry 97 Oxygen Delivery 07/12/22 08:00 07/12/22 08:00 07/12/22 12:00 Temperature 97.5 F L Pulse Rate 96 108 H Respiratory Rate 16 Blood Pressure 112/75 Pulse Oxim
[2022-07-11] VITALS (13 sets, daily range): BP systolic 109–123; BP diastolic 63–80; PULSE 92–110; RESP 16–20; TEMP 36.3–37; O2SAT 97–100
[2022-07-11 06:15] LABS: Hematocrit 38.6 % (37.0-47.0); Immature Platelet Fraction Pct 12.8 % (0.9-11.2); Mean Corpuscular HGB Conc 31.1 g/dl (32-36); Mean Corpuscular Hemoglobin 24.7 pg (26-34); Mean Corpuscular Volume 79.4 fl (80-100); Mean Platelet Volume 12.1 fl (7.4-10.4); Platelet Count Result 172 k/mm3 (150-375); Red Blood Count 4.86 M/mm3 (4.2-5.4); Red Cell Distribution Width 16.3 % (11.5-14.5); White Blood Count 7.2 K/mm3 (4.5-10.0)
[2022-07-11 06:19] LABS: Alanine Aminotransferase 45 U/L (6-35); Albumin Level 4.2 g/dL (3.5-5.1); Alkaline Phosphatase 118 U/L (38-126); Anion Gap 7 mmol/L (8-16); Aspartate Amino Transferase 54 U/L (14-36); Bilirubin,Total 0.8 mg/dL (0.2-1.3); Blood Urea Nitrogen 10 mg/dL (7-17); Calcium 8.9 mg/dL (8.4-10.2); Carbon Dioxide 23 mmol/L (22-30); Chloride 109 mmol/L (98-107); Estimated Glomerular Filt Rate > 60; Glucose 109 mg/dL (65-110); Magnesium 2.3 mg/dL (1.6-2.3); Sodium 139 mmol/L (137-145)
[2022-07-11] MEDS: ATORVASTATIN 40 MG TABLET PO (09:49)
[2022-07-11] MEDS: ENOXAPARIN 40 MG/0.4 ML SYRINGE SUB-Q (09:49)
[2022-07-11] MEDS: METOPROLOL SUCCINATE EXT REL 12.5 MG TABCR PO (09:49)
[2022-07-11] MEDS: EMPAGLIFLOZIN 10 MG TABLET PO (09:49)
[2022-07-11] MEDS: LOSARTAN POTASSIUM 25 MG TABLET PO (09:49)
[2022-07-11] MEDS: ASPIRIN 81 MG ENTERIC TABLET PO (09:49)
[2022-07-11] MEDS: METOPROLOL SUCCINATE EXT REL 25 MG TABCR PO (09:50)
--- NOTE | 2022-07-11 13:30 | PM.IMPN ---
Progress Note: A&P Assessment and Plan (1) Acute respiratory failure with hypoxia: Code(s): J96.01 - Acute respiratory failure with hypoxia Status: Acute (2) Congestive heart failure: Qualifiers: Heart failure chronicity: acute Heart failure type: unspecified Qualified Code(s): I50.9 - Heart failure, unspecified Code(s): I50.9 - Heart failure, unspecified Status: Acute (3) Flash pulmonary edema: Code(s): J81.0 - Acute pulmonary edema Status: Acute (4) Elevated d-dimer: Code(s): R79.89 - Other specified abnormal findings of blood chemistry Status: Acute (5) Transaminitis: Code(s): R74.01 - Elevation of levels of liver transaminase levels Status: Acute Plan The patient had acute hypoxic respiratory failure the most consistent with pulmonary edema whether acute or acute on chronic is not completely known as the patient has been having symptoms for 2 or 3 weeks. She likely has some underlying congestive heart failure possibly due to her recent history of lymphoma treatment. Will obtain echocardiogram. Patient's oxygen has been weaned down to 3 L nasal cannula. Will continue wean as tolerated to maintain oxygen saturations greater than 92% will obtain echocardiogram to further delineate patient's cardiac structure and function. Given the patient's recent travel in ER reported patient had asymmetric lower extremity swelling specially in the setting with patient having an elevated D-dimer we need to rule out pulmonary embolism. Patient has had prior episodes of marked into edema with IV contrast administration even when she had premedication for IV contrast. Thus a V/Q scan will be ordered to rule out pulmonary embolism. Will also check bilateral lower extremity Dopplers to rule out DVT. Will provide therapeutic Lovenox until tests are completed. The patient does have some transaminitis which I suspect is due to passive congestion of the liver. However, will check acute hepatitis panel. Patient does have elevated troponins but this likely due to profound hypoxia in the setting of pulmonary edema causing acute cardiac strain. Will check repeat troponin until trending down. Patient has been admitted as inpatient status and will require greater than 2 midnight stay for evaluation and stabilization of acute severe illness. 07/07/2022 interval history: patient with history of B-cell lymphoma going through the chemotherapy visiting family here from [place] and presented, with shortness of breath concerning for congestive heart failure and pulmonary emboli as patients D-dimer is elevated, patient's lower extremity Dopplers negative for DVT and her V/Q scan is negative for pulmonary emboli however her cardiac echo is concerning for severe cardiomyopathy with ejection fraction 15%, severe mitral valve regurgitation, and moderate anterior pericardial effusion with early right ventricular collapse concerning for he echo cardiographic tamponade, we have a consult mechanical engineering coop for further recommendation will continue to monitor 07/08/2022: Acute hypoxic respiratory failure related to pulmonary edema. V/Q scan with normal perfusion lung scan. Improved with IV Lasix. Venous duplex negative for DVT Echo with newly diagnosed systolic dysfunction with ejection fraction less than 15% Cardiomyopathy on losartan and metoprolol rule out ischemic cardiomyopathy. Lexiscan ordered for tomorrow cardiology on board Elevated troponin Sinus tachycardia possible atrial flutter received adenosine in the ER on presentation DVT prophylaxis Lovenox therapeutic Severe mitral regurgitation Left pleural effusion Pericardial effusion moderate anterior. Repeat echo needed no signs of clinical tamponade History of B-cell lymphoma completed chemotherapy Switch Lovenox to prophylactic dose 07/09/2022: Acute hypoxic respiratory failure related to pulmonary edema. V/Q scan with normal perfusion lung
[2022-07-12] VITALS (8 sets, daily range): BP systolic 95–128; BP diastolic 58–83; PULSE 93–108; RESP 16–20; TEMP 36.4–36.9; O2SAT 97–100
--- NOTE | 2022-07-12 03:58 | PCRCNOTE ---
patient continues to refuse use of NIV; patient is resting comfortably on room air with a 99% O2sat
[2022-07-12 04:45] LABS: Hemoglobin 11.2 g/dL (12.0-15.0); Mean Corpuscular HGB Conc 31.1 g/dl (32-36); Mean Corpuscular Hemoglobin 25.1 pg (26-34); Mean Corpuscular Volume 80.5 fl (80-100); Mean Platelet Volume 12.6 fl (7.4-10.4); Platelet Count Result 191 k/mm3 (150-375); Red Blood Count 4.47 M/mm3 (4.2-5.4); Red Cell Distribution Width 16.4 % (11.5-14.5); White Blood Count 5.6 K/mm3 (4.5-10.0)
[2022-07-12 04:55] LABS: Alanine Aminotransferase 35 U/L (6-35); Albumin Level 3.7 g/dL (3.5-5.1); Alkaline Phosphatase 105 U/L (38-126); Anion Gap 6 mmol/L (8-16); Aspartate Amino Transferase 41 U/L (14-36); Bilirubin,Total 0.5 mg/dL (0.2-1.3); Blood Urea Nitrogen 12 mg/dL (7-17); Calcium 8.7 mg/dL (8.4-10.2); Carbon Dioxide 25 mmol/L (22-30); Chloride 108 mmol/L (98-107); Estimated Glomerular Filt Rate > 60; Glucose 101 mg/dL (65-110); Magnesium 2.2 mg/dL (1.6-2.3); Potassium 3.7 mmol/L (3.4-5.0); Sodium 139 mmol/L (137-145)
[2022-07-12] MEDS: LOSARTAN POTASSIUM 25 MG TABLET PO (09:30)
[2022-07-12] MEDS: EMPAGLIFLOZIN 10 MG TABLET PO (09:30)
[2022-07-12] MEDS: METOPROLOL SUCCINATE EXT REL 12.5 MG TABCR PO (09:30)
[2022-07-12] MEDS: METOPROLOL SUCCINATE EXT REL 25 MG TABCR PO (09:30)
[2022-07-12] MEDS: ASPIRIN 81 MG ENTERIC TABLET PO (09:30)
[2022-07-12] MEDS: ENOXAPARIN 40 MG/0.4 ML SYRINGE SUB-Q (09:30)
[2022-07-12] MEDS: ATORVASTATIN 40 MG TABLET PO (09:30)
--- NOTE | 2022-07-12 13:32 | P.PNIM_ITS ---
Progress Note: A&P Assessment and Plan (1) Acute respiratory failure with hypoxia: Code(s): J96.01 - Acute respiratory failure with hypoxia Status: Acute (2) Congestive heart failure: Qualifiers: Heart failure chronicity: acute Heart failure type: unspecified Qualified Code(s): I50.9 - Heart failure, unspecified Code(s): I50.9 - Heart failure, unspecified Status: Acute (3) Flash pulmonary edema: Code(s): J81.0 - Acute pulmonary edema Status: Acute (4) Elevated d-dimer: Code(s): R79.89 - Other specified abnormal findings of blood chemistry Status: Acute (5) Transaminitis: Code(s): R74.01 - Elevation of levels of liver transaminase levels Status: Acute Plan The patient had acute hypoxic respiratory failure the most consistent with pulmonary edema whether acute or acute on chronic is not completely known as the patient has been having symptoms for 2 or 3 weeks. She likely has some underlying congestive heart failure possibly due to her recent history of lymphoma treatment. Will obtain echocardiogram. Patient's oxygen has been weaned down to 3 L nasal cannula. Will continue wean as tolerated to maintain oxygen saturations greater than 92% will obtain echocardiogram to further delineate patient's cardiac structure and function. Given the patient's recent travel in ER reported patient had asymmetric lower extremity swelling specially in the setting with patient having an elevated D- dimer we need to rule out pulmonary embolism. Patient has had prior episodes of marked into edema with IV contrast administration even when she had premedication for IV contrast. Thus a V/Q scan will be ordered to rule out pulmonary embolism. Will also check bilateral lower extremity Dopplers to rule out DVT. Will provide therapeutic Lovenox until tests are completed. The patient does have some transaminitis which I suspect is due to passive congestion of the liver. However, will check acute hepatitis panel. Patient does have elevated troponins but this likely due to profound hypoxia in the setting of pulmonary edema causing acute cardiac strain. Will check repeat troponin until trending down. Patient has been admitted as inpatient status and will require greater than 2 midnight stay for evaluation and stabilization of acute severe illness. 07/07/2022 interval history: patient with history of B-cell lymphoma going through the chemotherapy visiting family here from [place] and presented, with shortness of breath concerning for congestive heart failure and pulmonary emboli as patients D-dimer is elevated, patient's lower extremity Dopplers negative for DVT and her V/Q scan is negative for pulmonary emboli however her cardiac echo is concerning for severe cardiomyopathy with ejection fraction 15%, severe mitral valve regurgitation, and moderate anterior pericardial effusion with early right ventricular collapse concerning for he echo cardiographic tamponade, we have a consult mud analysis supervisor for further recommendation will continue to monitor 07/08/2022: Acute hypoxic respiratory failure related to pulmonary edema. V/Q scan with normal perfusion lung scan. Improved with IV Lasix. Venous duplex negative for DVT Echo with newly diagnosed systolic dysfunction with ejection fraction less than 15% Cardiomyopathy on losartan and metoprolol rule out ischemic cardiomyopathy. Lexiscan ordered for tomorrow cardiology on board Elevated troponin Sinus tachycardia possible atrial flutter received adenosine in the ER on presentation DVT prophylaxis Lovenox therapeutic Severe mitral regurgitation Left pleural effus
[2022-07-13] VITALS: BP 123/65; PULSE 92; PULSE 94; RESP 20; TEMP 36.8; O2SAT 100
[2022-07-13 04:00] VITALS: BP 100/67; PULSE 90; PULSE 98; RESP 20; TEMP 36.8; O2SAT 100
[2022-07-13 08:00] VITALS: BP 100/61; PULSE 100; PULSE 102; RESP 16; TEMP 36.9; O2SAT 100
[2022-07-13 08:47] VITALS: PULSE 102
[2022-07-13] MEDS: EMPAGLIFLOZIN 10 MG TABLET PO (08:47)
[2022-07-13] MEDS: ATORVASTATIN 40 MG TABLET PO (08:47)
[2022-07-13] MEDS: METOPROLOL SUCCINATE EXT REL 12.5 MG TABCR PO (08:47)
[2022-07-13] MEDS: ENOXAPARIN 40 MG/0.4 ML SYRINGE SUB-Q (08:48)
[2022-07-13] MEDS: METOPROLOL SUCCINATE EXT REL 25 MG TABCR PO (08:48)
[2022-07-13] MEDS: ASPIRIN 81 MG ENTERIC TABLET PO (08:48)
[2022-07-13] MEDS: LOSARTAN POTASSIUM 25 MG TABLET PO (08:48)
[2022-07-13 12:00] VITALS: PULSE 101
--- NOTE | 2022-07-13 18:03 | PM.DS ---
DS: Admitting Diagnosis Discharge Date 07/10/2022 Admitting Diagnosis Shortness of breath DS: Discharge Diagnosis Discharge Diagnosis (1) Acute respiratory failure with hypoxia: Code(s): J96.01 - Acute respiratory failure with hypoxia Status: Acute (2) Congestive heart failure: Qualifiers: Heart failure chronicity: acute Heart failure type: unspecified Qualified Code(s): I50.9 - Heart failure, unspecified Code(s): I50.9 - Heart failure, unspecified Status: Acute (3) Flash pulmonary edema: Code(s): J81.0 - Acute pulmonary edema Status: Acute (4) Elevated d-dimer: Code(s): R79.89 - Other specified abnormal findings of blood chemistry Status: Acute (5) Transaminitis: Code(s): R74.01 - Elevation of levels of liver transaminase levels Status: Acute DS: Summary Hospital Course Hospital Course: Acute hypoxic respiratory failure related to pulmonary edema.? V/Q scan with normal perfusion lung scan.? Improved with IV Lasix.? Venous duplex negative for DVT Echo with newly diagnosed systolic dysfunction with ejection fraction less than 15% likely related to acute on chronic congestive heart failure systolic. Started on goal-directed therapy with losartan and metoprolol. She did not require any further Lasix during the hospital stay. Will place on Lasix oral p.r.n. at discharge Cardiomyopathy on losartan and metoprolol rule out ischemic cardiomyopathy.? Lexiscan revealed large [id number] severity non reversible infarct involving the mid anteroseptal, apical, mid and basilar anterior segments in the mid and basilar interictal segments and a small [id number] severity non reversible infarct involving the mid inferior segment. After discussion with the patient plan for medical management with start of aspirin and statin particularly with a history of contrast dye allergy even with premedication. She will need to follow-up with cardiology and establish with them when she gets back to [place]. LifeVest was discussed was ordered at the time of discharge Elevated troponin Sinus tachycardia possible atrial flutter received adenosine in the ER on presentation currently on beta-renny DVT prophylaxis Lovenox therapeutic Severe mitral regurgitation Left pleural effusion Pericardial effusion moderate anterior.? Repeat echo needed no signs of clinical tamponade in a month History of B-cell lymphoma completed chemotherapy DVT proph: lovneox Time Spent with Patient Time attestation: Total time spent providing and/or coordinating discharge services: 45 minutes Exam Narrative: Patient is comfortable, NAD HEENT: eyes are clear and none icteric LUNGS: normal respiratory effort ABD: not distended soft nontender Lower extremities: no edema cyanosis or clubbing SKIN: nonjaundiced Neuro: grossly intact. DS: Data Data Completed and Pending Labs on day of discharge: Labs from last 24 hours 07/10/22 07/10/22 04:34 04:34 WBC 5.2 RBC 4.17 L Hgb 10.5 L Hct 33.9 L MCV 81.3 MCH 25.2 L MCHC 31.0 L RDW 16.7 H Plt Count 161 MPV 11.8 H Sodium 134 L Potassium 3.6 Chloride 106 Carbon Dioxide 24 Anion Gap 4 L BUN 11 Creatinine 0.50 L Estim Creat Clear Calc Not Reportable Estimated GFR > 60 Glucose 85 Calcium 8.1 L Magnesium 2.3 Total Bilirubin 0.5 AST 48 H ALT 39 H Alkaline Phosphatase 99 Total Protein 6.0 L Albumin 3.3 L Imaging Radiologist's impression: ITS Impressions Chest X-Ray 07/07/22 07:51 IMPRESSION: 1. Diffuse lung disease, likely pulmonary edema and basilar atelectasis versus pneumonia. 2. Small pleural effusions. 3. Cardiomegaly. Venous Doppler Study 07/07/22 10:28 Impression: No evidence for lower extremity DVT. Pulmonary Perfusion Imaging 07/07/22 13:56 Impression: Normal perfusion lung scan. ..............................................
== END 2022-07-13 14:42 | disposition home or self-care (01) | DRG 194 ==
LOC: ANHED 07-07 03:12 → ANHIMU 07-07 04:02
PROVIDERS: Family Medicine; Admitting Provider Internal Medicine; Emergency Provider Emergency Medicine; Visit Provider Internal Medicine
DX: I11.0 Hypertensive heart disease with heart failure (principal); J96.01 Acute respiratory failure with hypoxia; I21.19 ST elevation (STEMI) myocardial infarction involving other coronary artery of inferior wall; I50.21 Acute systolic (congestive) heart failure; I34.0 Nonrheumatic mitral (valve) insufficiency; Z20.822 Contact with and (suspected) exposure to COVID-19; Z85.72 Personal history of non-Hodgkin lymphomas; Z92.21 Personal history of antineoplastic chemotherapy; Z91.041 Radiographic dye allergy status
CPT/HCPCS: 36415; 71045; 78452; 78580; 80048; 80053; 80074; 82948; 83605; 83735; 83880; 84484; 85025; 85027; 85055; 85380; 85610; 85730; 87636; 93005; 93017; 93306; 93970; 99285; A9270; A9502; A9540; J0153; J1650; J2785